=== PATIENT | female | born 1995 | race Caucasian/White ===

== ENCOUNTER 2016-08-23 00:02 | Emergency (ER) | payer OTHER ==
[2016-08-23 00:09] VITALS: TEMP 97.9
[2016-08-23] MEDS ORDERED: LIDOCAINE 2% VISCOUS 15 ML UDCUP ONE ×2 (00:32→00:35)
[2016-08-23] MEDS ORDERED: LIDOCAINE 2% JELLY 20 ML (UROJECT) ONE ×2 (00:33→00:34)
--- NOTE | 2016-08-23 00:55 | EDPHY ---
H & P Stated Complaint: rxn to cream sores and blisters to perineum; cream for viral skin infection Time Seen by Provider: 08/23/16 00:23 HPI/ROS: Chief Complaint: Genital pain HPI: 21-year-old female who is presenting with 2 days of worsening pain in her vaginal area. Patient states she was diagnosed with molluscum a week ago, started using Aldara last week. She was applying ointment liberally to her perineum, including around her vaginal area. Two days ago noticed increasing sores on her labia where she had been applying the cream. Is increasingly painful to urinate. She has been applying a and D ointment without significant relief. No history of STDs. No vaginal discharge. No fevers or chills. Is painful to urinate and [place]edo on her skin. ROS: 10 point Review of Systems is negative except as noted in the HPI. PMH: None Social History: [No] smoking, [no] alcohol, [ no recreational drug use] Family History: [non-contributory] Physical Exam: Gen: [Awake], [Alert], [No Distress] Abd: [Soft], [non-tender], [no guarding] Genital: Examination done with nurse Jennifer as schedule checker. Patient has noted muscular in the perineum. There are excoriations on her labia minora with mild erythema and no discharge. There are no vesicles. Back: [no CVA tenderness], [no] midline tenderness [] Ext: [no] edema, [non-tender] Skin: [no rash] Neuro: [CN II-XII intact], [Sensation grossly intact], Strength [5]/5 in [ bilateral] [upper and] [lower] extremities - Personal History LMP (Females 10-55): 1-7 Days Ago Current Tetanus/Diphtheria Vaccine: Unsure Current Tetanus Diphtheria and Acellular Pertussis (TDAP): Unsure - Medical/Surgical History Hx Asthma: No Hx Chronic Respiratory Disease: No Hx Diabetes: No Hx Cardiac Disease: No Hx Renal Disease: No Hx Cirrhosis: No Hx Alcoholism: No Hx HIV/AIDS: No Hx Splenectomy or Spleen Trauma: No Other PMH: meloscum. tonsillectomy Constitutional: Initial Vital Signs Temperature (C) 36.6 C 08/23/16 00:06 Heart Rate 75 08/23/16 00:06 Respiratory Rate 14 05/07/17 00:06 Blood Pressure 130/83 H 08/23/16 00:06 O2 Sat (%) 98 08/23/16 00:06 O2 Delivery Mode Room Air Allergies/Adverse Reactions: No Known Allergies Allergy (Unverified 08/23/16 00:06) Home Medications: Medication Instructions Recorded Imiquimod 08/23/16 Departure - Departure Disposition: Home, Routine, Self-Care Clinical Impression: Ulceration, Medication reaction Condition: Good Instructions: Lidocaine/Prilocaine (On the skin) Additional Instructions: Apply Aquaphor to the affected area as needed for pain control. You may apply the viscous lidocaine every few hours as needed for pain. You may take hydrocodone if her pain is not controlled with topical measures. Follow up with egg smeller on Wednesday for re-evaluation. Referrals: Ying Wright MD [Primary Care Provider] - As per Instructions
[2016-08-23] MEDS ORDERED: HYDROCOD/APAP 5/325 PREPACK#6 BTL TAKEHOME ONE (01:15)
[2016-08-23 01:23] VITALS: BP 124/74; PULSE 77; RESP 16; O2SAT 95
== END 2016-08-23 01:22 | disposition home or self-care (01) ==
DX: L98.499 Non-pressure chronic ulcer of skin of other sites with unspecified severity (principal); T49.8X5A Adverse effect of other topical agents, initial encounter

== ENCOUNTER → 2018-04-29 | Outpatient (CLI) | payer OTHER | LOC: FIMAGING 09:50 | PROVIDERS: ATTEND Physician Assistant | DX: R19.5 Other fecal abnormalities (principal) ==